=== PATIENT | male | born 1990 | race Two or more races ===

== ENCOUNTER 2021-08-12 17:31 | Emergency (ER) | payer OTHER ==
[~2021-08-12] VITALS: Ht 175.3 cm; Wt 77.1 kg
--- NOTE | 2021-08-12 17:40 | NUR ---
DT LAW AT BEDSIDE FOR EVAL
[2021-08-12] MEDS ORDERED: ALBU18HF2 INH (17:43)
[2021-08-12] MEDS ORDERED: ALBUTEROL SULFATE 8 GM HFA.AER.AD IH ONE ×2 (18:00)
[2021-08-12] MEDS ORDERED: ALBUTEROL SULFATE INH 18 GM HFA.AER.AD IH ONE (18:00)
--- NOTE | 2021-08-12 18:06 | NUR ---
Patient discharged to [facility] in stable condition. Written and verbal after care instructions given. Patient verbalizes understanding of instruction.
[2021-08-12 18:11] VITALS: BP 126/73
== END 2021-08-12 18:12 ==
LOC: ER 17:55
DX: Z02.89 Encounter for other administrative examinations (principal); J45.909 Unspecified asthma, uncomplicated; Z60.2 Problems related to living alone; Z79.899 Other long term (current) drug therapy